=== PATIENT | male | born 1960 | race African-American/Black ===

== ENCOUNTER 2017-07-31 06:05 | Emergency (ER) | payer BC ==
[~2017-07-31] VITALS: Ht 185.4 cm; Wt 81.7 kg
[~2017-07-31 06:05] MED LIST: ANTIFUNGAL15 G1 TP; BACTRIM DS TAB1 EACH PO; KEFLEX500 MG PO
[2017-07-31] MEDS ORDERED: ZOFRAN ODT8 MG PO (06:28)
== END 2017-07-31 07:23 | disposition home or self-care (01) ==
LOC: ER 06:05
DX: R50.9 Fever, unspecified (principal); J45.909 Unspecified asthma, uncomplicated; R11.0 Nausea; I10 Essential (primary) hypertension; E78.00 Pure hypercholesterolemia, unspecified

== ENCOUNTER 2020-05-26 01:05 | Emergency (ER) | payer BC ==
[~2020-05-26] VITALS: Ht 185.4 cm; Wt 81.7 kg
[~2020-05-26 01:05] MED LIST changes: +ZOFRAN ODT8 MG PO
[2020-05-26 01:07] VITALS: BP 184/103
[2020-05-26] MEDS ORDERED: NOHOMEMEDICATIONS (01:13)
[2020-05-26] MEDS ORDERED: TRAMADOL 50 MG50 MG PO (02:00)
[2020-05-26] MEDS ORDERED: NAPROSYN500 MG PO (02:00)
== END 2020-05-26 02:10 | disposition home or self-care (01) ==
LOC: ER 01:05
DX: S83.412A Sprain of medial collateral ligament of left knee, initial encounter (principal); I10 Essential (primary) hypertension; E78.00 Pure hypercholesterolemia, unspecified; X50.1XXA Overexertion from prolonged static or awkward postures, initial encounter; Y93.89 Activity, other specified; Y92.69 Other specified industrial and construction area as the place of occurrence of the external cause; Y99.8 Other external cause status